=== PATIENT | female | born 1955 | race Caucasian/White ===

== ENCOUNTER 2016-03-24 19:43 | Emergency (ER) | payer MEDICAID, OTHER ==
[~2016-03-24] VITALS: Ht 162.6 cm; Wt 68.2 kg
[~2016-03-24 19:43] MED LIST: ENAL2.5T PO; LITH300C3 PO; METF500T4 PO; RISP1 PO; SIMV20TA6 PO; ZOLP10TA2 PO; [UNRECOGNIZED DRUG - CODE]
[2016-03-24] MEDS ORDERED: INSLAN SQ (19:49)
[2016-03-24] MEDS ORDERED: RISP3 PO (19:49)
[2016-03-24] MEDS ORDERED: ARIP15TA3 PO (19:49)
[2016-03-24] MEDS ORDERED: LURA80 PO (19:49)
[2016-03-24] MEDS ORDERED: AMLO-511 PO (19:49)
[2016-03-24] MEDS ORDERED: DIVA500T35 PO (19:49)
[2016-03-25 00:27] LABS: BASOPHILS # (AUTO) 0.02 K/uL (0.00-0.20); BASOPHILS % (AUTO) 0.4 % (0.0-2.0); EOSINOPHILS # (AUTO) 0.01 K/uL (0.00-0.70); EOSINOPHILS % (AUTO) 0.18 % (1.0-6.0); HEMATOCRIT 40.8 % (36-46); HEMOGLOBIN 13.3 g/dL (12.0-16.0); LYMPHOCYTES # (AUTO) 1.7 K/uL (1.0-4.8); LYMPHOCYTES % (AUTO) 27.7 % (22.0-44.0); MEAN CORPUSCULAR HEMOGLOBIN 29.3 pg (26.0-34.0); MEAN CORPUSCULAR HGB CONC 32.6 G/dL (31.0-37.0); MEAN CORPUSCULAR VOLUME 90 fL (80-100); MONOCYTES # (AUTO) 0.5 K/uL (0.1-1.0); MONOCYTES % (AUTO) 7.7 % (2.0-9.0); NEUTROPHILS % (AUTO) 64.1 % (40.0-70.0); PLATELET COUNT (AUTO) 137 K/uL (150-450); RED BLOOD CELL COUNT(AUTO) 4.54 MIL/uL (4.00-5.20); RED CELL DISTRIBUTION WIDTH 13.4 % (11.5-14.5); WHITE BLOOD COUNT (AUTO) 6.3 K/uL (4.5-11.0)
[2016-03-25 00:35] LABS: APPEARANCE,URINE CLEAR (CLEAR); GLUCOSE, URINE (UA) >=1000 mg/dL (NEGATIVE); KETONES,URINE 40 mg/dL (NEGATIVE); LEUKOCYTE ESTERASE ,URINE NEGATIVE (NEGATIVE); OCCULT BLOOD,URINE NEGATIVE (NEGATIVE); PH,URINE 5.5 (5.0-8.0); PROTEIN,URINE NEGATIVE (NEGATIVE)
[2016-03-25 00:36] LABS: CALCIUM, TOTAL 9.4 mg/dL (8.8-10.5); CREATININE 0.98 mg/dL (0.60-1.30); POTASSIUM 4.2 mmol/L (3.5-5.1)
[2016-03-25 00:42] LABS: ALBUMIN 3.7 g/dL (3.4-5.0); BILIRUBIN,TOTAL 0.4 mg/dL (0.1-1.0); TOTAL PROTEIN, SERUM 8.2 g/dL (6.4-8.2)
[2016-03-25 01:00] VITALS: BP 130/59
[2016-03-25 01:15] LABS: RBC,URINE None Seen /HPF (0-2); SQUAMOUS EPITHELIAL CELL,UR Few /LPF (None Seen); WBC,URINE None Seen /HPF (0-5)
== END 2016-03-25 01:22 | disposition home or self-care (01) ==
LOC: EMS 19:44
DX: R73.9 Hyperglycemia, unspecified (principal); I10 Essential (primary) hypertension; Z79.4 Long term (current) use of insulin
CPT/HCPCS: 82962; 99284

== ENCOUNTER 2017-10-19 09:37 | Emergency (ER) | payer OTHER ==
[~2017-10-19] VITALS: Ht 149.9 cm; Wt 50.0 kg
[~2017-10-19 09:37] MED LIST changes: +AMLO-511 PO; +ARIP15TA2 PO; +DIVA-78 PO; -ENAL2.5T PO; +INSLAN SQ; -LITH300C3 PO; +LURA80 PO; -METF500T4 PO; -RISP1 PO; +RISP3 PO; -SIMV20TA6 PO; -ZOLP10TA2 PO; -[UNRECOGNIZED DRUG - CODE]
[2017-10-19] MEDS ORDERED: ENAL5TAB PO (10:10)
[2017-10-19] MEDS ORDERED: LURA80 PO (10:10)
[2017-10-19] MEDS ORDERED: METF-446 PO (10:10)
[2017-10-19] MEDS ORDERED: GLIP10TA9 PO (10:10)
[2017-10-19] MEDS ORDERED: RISP3TAB13 PO (10:10)
[2017-10-19] MEDS ORDERED: SODIUM CHLORIDE 0.9% 1,000 ML IV ONE (10:15)
[2017-10-19] MEDS ORDERED: INSULIN REGULAR, HUMAN 100 UNITS/ML IVP ONE (10:15)
[2017-10-19 10:50] LABS: CALCIUM, TOTAL 8.8 mg/dL (8.8-10.5); CREATININE 1.09 mg/dL (0.60-1.30); POTASSIUM 4.7 mmol/L (3.5-5.1)
[2017-10-19 11:57] VITALS: BP 115/65
[2017-10-19 12:09] LABS: GLUCOSE,POINT OF CARE 289 MG/DL (70-110)
== END 2017-10-19 13:12 | disposition home or self-care (01) ==
LOC: EMS 09:39
DX: E11.65 Type 2 diabetes mellitus with hyperglycemia (principal); F20.9 Schizophrenia, unspecified; I10 Essential (primary) hypertension; Z79.4 Long term (current) use of insulin; Z79.84 Long term (current) use of oral hypoglycemic drugs
CPT/HCPCS: 36415; 80048; 82948; 82962; 96361; 96374; 99284; J1815; J7030